=== PATIENT | female | born 1960 | race Caucasian/White ===

== ENCOUNTER 2019-02-13 11:10 | Day surgery (SDC) | payer OTHER ==
[2019-02-13] MEDS ORDERED: MIDAZOLAM 1 MG/ML 2 ML INJ ×2 (17:09)
[2019-02-13] MEDS ORDERED: FENTAnyl 50 MCG/ML VIAL (17:09)
== END 2019-02-13 17:19 | disposition home or self-care (01) ==
LOC: GIL 11:10
DX: Z12.11 Encounter for screening for malignant neoplasm of colon (principal); K64.8 Other hemorrhoids
CPT/HCPCS: 45378